=== PATIENT | male | born 1975 | race Caucasian/White ===

== ENCOUNTER 2021-12-01 14:26 | Observation (INO) ==
[2021-12-01 14:50] LABS: Hematocrit 48.2 % (37.5-50.1); Hemoglobin 17.1 g/dL (12.9-16.9); Mean Corpuscular HGB Conc 35.5 g/dL (31.6-35.5); Mean Corpuscular Hemoglobin 30.3 pg (28.0-33.3); Mean Corpuscular Volume 85.5 fL (83.0-100.0); Mean Platelet Volume 9.5 fL (9.4-12.4); Platelet Count 341 K/mcL (140-400); Red Blood Count 5.64 M/mcL (4.19-5.50); Red Cell Distribution Width 12.6 % (11.5-14.5); White Blood Count 13.7 K/mcL (4.3-11.1)
[2021-12-01 15:08] LABS: BUN/Creatinine Ratio 14 (6-26); Blood Urea Nitrogen 17 mg/dL (6-20); Calcium 9.9 mg/dL (8.6-10.3); Carbon Dioxide 26 mEq/L (23-29); Chloride 95 mEq/L (98-107); Glucose 125 mg/dL (70-105); Osmolality,Calculated 277 (280-300); Potassium 3.2 mEq/L (3.5-5.1); Sodium 132 mEq/L (136-145); eGFR For African Americans > 60 (> 60); eGFR For Non-African Americans > 60 (> 60)
[2021-12-01] MEDS ORDERED: Iopamidol - 370 500 ML MLS IVP ONE (15:24)
[2021-12-01] MEDS ORDERED: Aspirin 81 MG TAB.CHEW PO ONE (15:43)
[2021-12-01] MEDS ORDERED: Perflutren Lipid Microsphere 1.3 ML in 0.9 % Sodium Chloride 8.7 ML IVP PRN (19:49)
[2021-12-01] MEDS ORDERED: Melatonin 3 MG TABLET PO PRN (19:54)
[2021-12-01] MEDS ORDERED: Naloxone 0.4 MG/ML INJ IVP PRN (19:54)
[2021-12-01] MEDS ORDERED: Ondansetron ODT 4 MG TAB.RAPDIS SL PRN (19:54)
[2021-12-01] MEDS ORDERED: 0.9 % Sodium Chloride 1,000 ML IVC SCH (20:00)
[2021-12-01] MEDS ORDERED: D5% in Water 1,000 ML IVC PRN (20:12)
[2021-12-01] MEDS ORDERED: Dextrose Gel 15 GM/37.5 ML TUBE PO PRN ×2 (20:12)
[2021-12-01] MEDS ORDERED: *HR* Dextrose 50 % in Water (Syg) 50 ML SYRINGE IVP PRN (20:12)
[2021-12-01] MEDS ORDERED: Insulin LISPRO 300 UNITS/3 ML VIAL SUBQ SCH (21:00)
[2021-12-02 00:57] LABS: Bilirubin,Urine Negative (Negative); Blood,Urine Negative (Negative); Clarity,Urine Clear (Clear); Color,Urine Light-Yellow (Yellow); Glucose,Urine (UA) >=1000 mg/dL (Normal); Ketones,Urine Negative (Negative); Leukocyte Esterase,Urine Negative (Negative); Mucus,Urine Few per lpf (None-Few); Nitrite,Urine Negative (Negative); PH,Urine 5.5 pH Units (5.0-8.0); Protein,Urine Negative (Neg-Trace); RBC,Urine 0-3 per hpf (0-3); Squamous Epithelial Cell,Urine Few per hpf (None-Few); Urobilinogen,Urine Normal (Normal); WBC,Urine 0-3 per hpf (0-3)
[2021-12-02 05:11] LABS: Hematocrit 44.5 % (37.5-50.1); Hemoglobin 15.6 g/dL (12.9-16.9); Mean Corpuscular HGB Conc 35.1 g/dL (31.6-35.5); Mean Corpuscular Volume 85.6 fL (83.0-100.0); Mean Platelet Volume 9.6 fL (9.4-12.4); Platelet Count 274 K/mcL (140-400); Red Cell Distribution Width 12.7 % (11.5-14.5); White Blood Count 9.1 K/mcL (4.3-11.1)
[2021-12-02 05:26] LABS: Prothrombin Time 10.7 Seconds (9.4-12.1)
[2021-12-02 05:36] LABS: Magnesium 2.1 mg/dL (1.6-2.6); Phosphorous 3.5 mg/dL (2.7-4.5)
[2021-12-02 05:40] LABS: Alanine Aminotransferase 25 Units/L (7-52); Albumin 3.8 g/dL (3.5-5.7); Albumin/Globulin Ratio 1.3 (1.1-2.2); Alkaline Phosphatase 65 Units/L (34-104); Aspartate Amino Transferase 21 Units/L (13-39); BUN/Creatinine Ratio 15 (6-26); Bilirubin,Total 0.5 mg/dL (0.3-1.0); Blood Urea Nitrogen 15 mg/dL (6-20); Carbon Dioxide 24 mEq/L (23-29); Chloride 102 mEq/L (98-107); Chol/HDL Ratio 8.5 (0-4.9); Cholesterol 229 mg/dL (< 200); Globulin 2.9 g/dL (2.4-3.5); Glucose 127 mg/dL (70-105); HDL Cholesterol 27 mg/dL (40-59); Osmolality,Calculated 280 (280-300); Potassium 3.6 mEq/L (3.5-5.1); Sodium 134 mEq/L (136-145); Total Protein 6.7 g/dL (6.4-8.9); Troponin I < 0.03 ng/mL (< 0.04); eGFR For African Americans > 60 (> 60); eGFR For Non-African Americans > 60 (> 60)
[2021-12-02 05:51] LABS: Triglycerides 1066 mg/dL (< 150)
[2021-12-02 06:01] LABS: Folate 18.8 ng/mL (3.0-16.0)
[2021-12-02 06:05] LABS: LDL Cholesterol,Direct 70 mg/dL (75-193)
[2021-12-02 06:07] LABS: Thyroid Stimulating Hormone 1.691 mcIU/mL (0.340-5.600)
[2021-12-02] MEDS: Insulin LISPRO 300 UNITS/3 ML VIAL SUBQ SCH ×2 (08:23→12:54)
[2021-12-02 08:51] LABS: Estimated Average Glucose 146 mg/dl; Hemoglobin A1C 6.7 %
[2021-12-02] MEDS ORDERED: Aspirin Enteric Coated 81 MG Tablet PO SCH (09:00)
[2021-12-02] MEDS ORDERED: Fenofibrate 54 MG TABLET PO SCH (13:15)
[2021-12-02 14:48] VITALS: BP 152/91; PULSE 80; TEMP 97.6; O2SAT 99
[2021-12-02] MEDS ORDERED: *HR* Heparin 5,000 UNIT/ML VIAL SQ SCH (18:00)
[2021-12-02] MEDS ORDERED: Insulin DETEMIR 100 UNIT/ML X5UNITS SUBQ SCH (21:00)
== END 2021-12-02 16:40 | disposition home or self-care (01) ==
LOC: EMEROOARM 14:26 → 3BNU 14:26 → SUATTDRO 18:31 → 3BNU 19:26
PROVIDERS: ADMIT Internal Medicine; ATTEND Internal Medicine